=== PATIENT | male | born 1995 | race Caucasian/White ===

== ENCOUNTER 2020-07-18 21:28 | Emergency (ER) | payer SELFPAY ==
[2020-07-18 21:37] VITALS: BP 117/69; PULSE 64; RESP 19; TEMP 36.6; O2SAT 98; BMI 22.1
[2020-07-18 21:55] VITALS: BP 131/80; PULSE 60; RESP 18; O2SAT 100
--- NOTE | 2020-07-18 22:03 | XRR_ITS ---
PROCEDURE INFORMATION: Exam: XR Left Foot Complete Exam date and time: 07/18/2020 10:21 PM Age: 24 years old Clinical indication: Injury or trauma; Blunt trauma; Patient HX: Fall, left foot/ankle pain; Additional info: Fall/injury TECHNIQUE: Imaging protocol: XR Left foot. Views: 3 or more views. COMPARISON: No relevant prior studies available. FINDINGS: Bones/joints: There is a tiny calcification lateral to the cuboid compatible with either a small os peroneum or tiny avulsion fracture. No dislocation. No additional acute fracture. Probable chronic/old avulsion fracture of the dorsum of the talus is noted. Soft tissues: There is soft tissue edema along the lateral midfoot. No foreign body. XR/XR foot LT min 3V* [id number] IMPRESSION: There is a tiny calcification lateral to the cuboid compatible with either a small os peroneum or tiny avulsion fracture. There is adjacent soft tissue edema. No additional acute bony abnormality.
--- NOTE | 2020-07-18 22:03 | XRR_ITS ---
PROCEDURE INFORMATION: Exam: XR Left Ankle Exam date and time: 07/18/2020 10:19 PM Age: 24 years old Clinical indication: Injury or trauma; Blunt trauma; Right; Patient HX: Fall, left ankle/foot pain; Additional info: Fall/injury TECHNIQUE: Imaging protocol: XR Left ankle. Views: 3 or more views. COMPARISON: No relevant prior studies available. FINDINGS: Bones/joints: There is a small avulsion fracture of the dorsum of the talus without significant edema. This may be old. No dislocation. No additional acute fracture is identified. The tiny calcification adjacent to the cuboid on the foot exam is not visualized on this exam. Soft tissues: There is soft tissue edema along the lateral hindfoot. XR/XR ankle LT min 3V* [id number] IMPRESSION: There is a small avulsion fracture of the dorsum of the talus without significant edema. This may be old.
[2020-07-18 22:23] VITALS: BP 131/80; PULSE 87; RESP 14; O2SAT 99
--- NOTE | 2020-07-18 22:51 | W.ED.EXTPRO ---
HPI - Extremity Problem General: Chief complaint: Extremity Injury, Lower Stated complaint: left foot injury Time Seen by Provider: 07/18/20 21:47 Source: patient Limitations: no limitations History of Present Illness: HPI Narrative: Just prior to arrival the patient states he was dancing around with friends when he rolled his left ankle. He has pain in the foot and ankle. He denies any other injuries or complaints. Patient says he can walk on his foot but it does cause a significant amount of pain when he does so. Review of Systems General: Reports: 10 or more systems reviewed and unremarkable except in HPI and below PFSH ED PFSH: Social History Smoking and tobacco status: current every day smoker cigarettes and smokeless tobacco Physical Exam Extremity: NARRATIVE EXTREMITY EXAM: Left lateral ankle swelling and foot swelling. Neurovascular intact distal. No pain proximal to the ankle on palpation. Course Vital Signs: Vital signs: Vital Signs Temperature 97.8 F 07/18/20 21:37 Pulse Rate 84 07/19/20 00:50 Respiratory Rate 14 07/19/20 00:50 Blood Pressure 128/74 07/19/20 00:50 Pulse Oximetry 99 07/19/20 00:50 MDM - Extremity (Nontraumatic) MDM Narrative: Medical decision making narrative: Patient appears to have a small avulsion fracture of the foot. I will place him in a splint, crutches and have him follow-up with orthopedics. Imaging Data^: Left Foot and Ankle - : Attestation: I personally reviewed and interpreted this imaging study as follows: My impression: Small avulsion fracture on the left foot Discharge Plan Discharge Patient Disposition: Home Clinical Impression: Foot fracture, left Qualifiers: Encounter type: initial encounter Fracture type: closed Qualified Code(s): S92.902A - Unspecified fracture of left foot, initial encounter for closed fracture Condition: Stable Prescriptions: No Action ondansetron 4 mg tablet,disintegrating 4 mg PO Q8H PRN (Reason: nausea and vomiting) Qty: 20 RF: 0 Discharge Orders: Discharge Order (Routine); Ordered 07/18/20 Ordered By: Rae Valencia Referrals: Tucker Hayward DPM [Physician] - 1-3 days Walt Perrin MD [Family Provider] - Patient Instructions: Foot Fracture in Adults (ED) Activity Restrictions/Additional Instructions: Please return to the ER immediately for any of the signs or symptoms listed on your discharge instruction sheets, worsening/changing of your symptoms, you are not getting better as quickly as expected, or for ANY other cause or concerns. Do not bear weight on your left foot until instructed further by Dr. Hayward. Use your crutches and splint at all times. Return to the ER for any worsening of your symptoms or cause for concern. Discharge Date/Time: 07/19/20 00:52 Coding Level of Care Code ED Building Supplies Salesperson Retail for Bambi Hernandez
[2020-07-18] MEDS: HYDROcodone-acetaminophen 5-325 mg Tablet 1 TAB PO (23:46)
[2020-07-19 00:50] VITALS: BP 128/74; PULSE 84; RESP 14; O2SAT 99
--- NOTE | 2020-07-21 09:26 | DCPLANNER ---
Dae pickard had message to schedule a follow up appointment for patient with ortho. cinema or theatre manager called the ortho clinic, spoke with Rachna, gave clinic patients information. cinema or theatre manager was told that patients information would be printed and reviewed. Clinic will call patient with appointment information.
--- NOTE | 2020-07-22 09:47 | DCPLANNER ---
Patient has a follow up appointment scheduled for July at 8:[address] Hayward. Clinic will call patient with appointment information.
--- NOTE | 2020-08-01 18:11 | DCPLANNER ---
Patient had a follow up appointment scheduled for 07.24.20 with ortho - patient did attend appointment.
== END 2020-07-19 00:52 | disposition home or self-care (01) ==
PROVIDERS: Emergency Provider Emergency Medicine; Family Provider Family Medicine
DX: S92.812A Other fracture of left foot, initial encounter for closed fracture (principal); X50.1XXA Overexertion from prolonged static or awkward postures, initial encounter; F17.220 Nicotine dependence, chewing tobacco, uncomplicated
CPT/HCPCS: 12345; 29515; 73610; 73630; 99281; 99283

== ENCOUNTER 2020-07-24 09:47 | Outpatient (CLI) | payer SELFPAY | END 2020-07-24 09:48 | disposition home or self-care (01) | LOC: SPT 09:49 | PROVIDERS: Family Provider Family Medicine; Visit Provider Podiatrist Foot & Ankle Surgery | DX: Z47.89 Encounter for other orthopedic aftercare (principal); S92.109D Unspecified fracture of unspecified talus, subsequent encounter for fracture with routine healing; S92.21 Fracture of cuboid bone; S93.409D Sprain of unspecified ligament of unspecified ankle, subsequent encounter; X58.XXXD Exposure to other specified factors, subsequent encounter | CPT/HCPCS: 97760; L4361 ==

== ENCOUNTER 2020-08-07 13:55 | Outpatient (CLI) | payer SELFPAY | END 2020-08-07 13:56 | disposition home or self-care (01) | LOC: SPT 13:55 | PROVIDERS: Family Provider Family Medicine; Visit Provider Podiatrist Foot & Ankle Surgery | DX: Z46.89 Encounter for fitting and adjustment of other specified devices (principal); S92.212D Displaced fracture of cuboid bone of left foot, subsequent encounter for fracture with routine healing; X58.XXXD Exposure to other specified factors, subsequent encounter | CPT/HCPCS: 97760; L1902 ==

== ENCOUNTER 2022-08-24 10:02 | Emergency (ER) | payer SELFPAY ==
[2022-08-24 10:07] VITALS: BP 135/78; PULSE 92; RESP 16; TEMP 36.5; O2SAT 100; BMI 23.6
[2022-08-24 10:24] VITALS: PULSE 91; O2SAT 98
--- NOTE | 2022-08-24 10:30 | PC.NURSE ---
ANIMAL CONTROL CALLED TO BE NOTIFIED OF DOG BITE. RECIPIENT OF CALL WAS UNABLE TO ANSWER. BRIEF MESSAGE LEFT ON VOICEMAIL WITH INSTRUCTION TO CALL BACK [phone]
--- NOTE | 2022-08-24 10:34 | ED_ITS ---
HPI - Animal Bite General: Chief Complaint: Animal Bite Stated Complaint: infected dog bite Time Seen by Provider: 08/24/22 10:13 Source: patient History of Present Illness: 27-year-old male was bit by a neighbor's dog 2 days ago. Reddened inflamed his bed on the left forearm no active drainage it has become red and inflamed mild swelling. The dog's rabies vaccination status is unknown MD complaint: animal bite Onset (ago): minute(s) Animal: dog Description of animal: household pet Mechanism: bite Location - Extremities: Left: forearm Pain description: dull Associated symptoms: Reports erythema; Deny bleeding, chills, cough, diaphoresis, fever(s), headache(s), numbness, rash, short of breath, syncope, weakness or wound drainage Related Data: Patient tetanus UTD: Yes Review of Systems Const: Denies: fever(s), chills or diaphoresis ENMT: Denies: throat pain, ear or mastoid pain, nasal discharge or nasal congestion Card: Denies: syncope Resp: Denies: dyspnea, productive cough or non-productive cough GI: Denies: abdominal pain, nausea, vomiting, hematemesis, coffee ground emesis, diarrhea, constipation, bloating, hematochezia or melena : Denies: flank pain, difficulty urinating, dysuria, urinary frequency or urinary urgency Skin/Breast: Denies: rash or pruritus Neuro: Denies: headache(s) PFSH ED PFSH: Social History Smoking and tobacco status: current every day smoker cigarettes and smokeless tobacco Physical Exam Const: COMMON NORMALS: no acute distress GENERAL APPEARANCE: cooperative and comfortable ORIENTATION/CONSCIOUSNESS: Yes awake, Yes oriented to person, Yes oriented to place and Yes oriented to time Eye: COMMON NORMALS: Equal, round and reactive pupils present, EOMs intact bilaterally, conjunctivae normal and no scleral icterus CONJUNCTIVA: Yes conjunctivae normal PUPIL: Yes Equal, round and reactive pupils present Lymph: LYMPHATIC: no lymphadenopathy noted and no lymphedema noted Resp: COMMON NORMALS: normal respiratory effort, No retractions, No use of accessory muscles and clear to auscultation bilaterally AUSCULTATION: clear to auscultation bilaterally Cardio: COMMON NORMALS: regular rate, regular rhythm and No murmurs present (Cardio) RATE: regular rate RHYTHM: regular rhythm Extremity: COMMON NORMALS: capillary refill normal, no clubbing, cyanosis or edema, no calf tenderness and no pedal edema OTHER: L arm dry eschar with no drainage. Mild erythema and swelling. no plapable abscess. Neuro: SENSORIUM/ORIENTATION: Yes oriented to person, Yes oriented to place and Yes oriented to time Skin: GENERAL SKIN EXAM: erythema Course Vital Signs: Vital signs: Vital Signs Temperature 97.7 F 08/24/22 10:07 Pulse Rate 91 08/24/22 10:24 Respiratory Rate 16 08/24/22 10:07 Blood Pressure 135/78 08/24/22 10:07 Pulse Oximetry 98 08/24/22 10:24 Oxygen Delivery Me thod 08/24/22 10:24 MDM - Animal Bite Medical Decision Making Patient states he is up-to-date on his tetanus status. He had an injury a year or 2 ago was updated. They are unsure of the rabies vaccination status of the dog that bit him and his neighbors dog. We will start him on rabies prophylaxis and vaccination. For return for the remainder of the immunizations. Medical Records I reviewed the patient's medical records. Lab Data I reviewed the patient's lab results. Discharge Plan Discharge Patient Disposition: Home Clinical Impression: Dog bite, Probable rabies Condition: Stable Prescriptions: New amoxicillin-pot clavulanate 875-125 mg tablet 1 tab PO BID Qty: 14 0RF Discontinued amoxicillin 500 mg capsule 500 mg PO QID Qty: 40 0RF No Action promethazine 25 mg tablet 25 mg PO Q6H PRN (Reason: nausea and vomiting) Qty: 14 0RF Discharge Orders: Discharge ED (Routine); Ordered 08/24/22 Ordered By: Javier Wilkinson Discharge Diet: Usual diet Discharge Activity: Resume usual activity Activity Restrictions/Additional Instructions: Turn for the completion of your rabies series as indicated on the discharge information Coding Level of Care Code ED Accounts Administrator for Bambi Hernandez
[2022-08-24] MEDS: rabies vaccine 2.5 unit SDV IM (10:43)
[2022-08-24 11:07] VITALS: PULSE 91; O2SAT 98
--- NOTE | 2022-08-24 11:33 | PC.NURSE ---
ANIMAL CONTROL CALLED [facility] ED. INFORMATION OF INCIDENT GIVEN. ANIMAL CONTROL INFORMED THAT PT DID NOT WISH TO PRESS CHARGES UNLESS ANIMAL WAS SEEN AGAIN.
== END 2022-08-24 11:16 | disposition home or self-care (01) ==
PROVIDERS: Emergency Provider Family Medicine
DX: S51.852A Open bite of left forearm, initial encounter (principal); Z20.3 Contact with and (suspected) exposure to rabies; W54.0XXA Bitten by dog, initial encounter; Z29.14 Encounter for prophylactic rabies immune globulin; F17.210 Nicotine dependence, cigarettes, uncomplicated
CPT/HCPCS: 90375; 90471; 90675; 96372; 99284

== ENCOUNTER 2023-04-19 07:58 | Day surgery (SDC) | payer OTHER, SELFPAY ==
[2023-04-19] VITALS (14 sets, daily range): BP systolic 105–156; BP diastolic 68–87; PULSE 46–76; RESP 12–20; TEMP 36.1–36.5; O2SAT 92–99; BMI 21.5
--- NOTE | 2023-04-19 08:12 | ED_ITS ---
Documented by User: SPIKE Ragsdale 04/19/23 10:40 HPI - Extremity Injury (Upper) General: Chief Complaint: Extremity Injury, Upper Stated Complaint: index finger, right hand lac Time Seen by Provider: 04/19/23 07:59 Source: patient Mode of arrival: ambulatory Limitations: no limitations History of Present Illness: Patient is a 27-year-old male who presents to ED today with a complaint of a right index finger amputation injury that he sustained just prior to arrival while at work at a [employer]. He states he cut the finger on a sawblade. Last tetanus is unknown. MD complaint: injury to: right and finger Onset (ago): hour(s) Other Extremity Injury: Right: fingers Other injuries: none Handedness: right Place: work Severity: severe Severity scale (1-10): 10 Relieving factors: none Exacerbating factors: movement of extremity Context: laceration Associated symptoms: Reports no associated symptoms Treatments prior to arrival: bandage Review of Systems GI: Reports: nausea Musc: Reports: extremity pain (R index finger) Skin/Breast: Reports: other (distal finger tip amputation) [facility] ED PFSH: Social History Smoking and tobacco status: current every day smoker cigarettes and smokeless tobacco Physical Exam Const: COMMON NORMALS: average body habitus, patient oriented x3, no limitations, healthy appearing, alert and well nourished GENERAL APPEARANCE: cooperative and in distress (nauseous and in pain) ORIENTATION/CONSCIOUSNESS: Yes awake, Yes oriented to person, Yes oriented to place and Yes oriented to time Extremity: GENERAL: Yes normal exam except as noted RIGHT UPPER EXTREMITY: Yes hand & digits (see below) OTHER: patient has extensive injury to R index finger distal tip; he has lacerated vertically through tip down to his PIP joint; bleeding controlled at this time Neuro: COMMON NORMALS: patient oriented x3 SENSORIUM/ORIENTATION: Yes alert, Yes oriented to person, Yes oriented to place and Yes oriented to time Course Consultations: Consultation #1: Dr. Dominguez-will take to OR later this evening around 5pm; agrees with tetanus/IV ancef given here; recommends wash out Vital Signs: Vital signs: Vital Signs Temperature 97.7 F 04/19/23 08:28 Pulse Rate 70 04/19/23 10:30 Respiratory Rate 16 04/19/23 10:30 Blood Pressure 105/68 04/19/23 10:30 Pulse Oximetry 95 04/19/23 10:30 Oxygen Delivery Me thod Room Air 04/19/23 08:28 MDM - Extremity Injury (Upper) Medical Decision Making Discussed case x-ray reviewed. Agree with assessment and plan. Laila Stone is talk to Dr. Dominguez plan is 6 patient to surgery this afternoon for revision of the amputation site on the right index finger. Patient will await surgery in GI outpatient lab. Pain/nausea prn meds ordered. He is NPO. Maintaince fluids ordered. Lab Data Radiology Impressions Finger X-Ray 04/19/23 08:15 IMPRESSION: Complex open crush injury of the distal 2nd phalanx. Discharge Plan Discharge Patient Disposition: Admitted As Inpatient Clinical Impression: Finger amputation, traumatic Qualifiers: Encounter type: initial encounter Qualified Code(s): S68.119A - Complete traumatic metacarpophalangeal amputation of unspecified finger, initial encounter Condition: Stable Coding Level of Care Code ED Clean Room Assembler for Chg Fwd Documented by User: Javier Wilkinson DO 04/19/23 12:37 HPI - Extremity Injury (Upper) General: Chief Complaint: Extremity Injury, Upper Stated Complaint: index finger, right hand lac Time Seen by Provider: 04/19/23 07:59 PFSH ED PFSH: Social History Smoking and tobacco status: current every day smoker cigarettes and smokeless tobacco Course Vital Signs: Vital signs: Vital Signs Temperature 97.7 F 04/19/23 08:28 Pulse Rate 70 04/19/23 10:30 Respiratory Rate 16 04/19/23 10:30 Blood Pressure 105/68 04/19/23 10:30 Pulse Oximetry 95 04/19/23 10:30 Oxygen Delivery Me thod Room Air 04/19/23 08:28 MDM - Extremity Injury (Upper) Medical Decision Making Discussed case x-ray reviewed. Agree with assessment and plan. Laila Stone is talk to Dr. Dominguez plan is 6 patient to surgery this afternoon for revision of the amputation site on the right index finger. Patient will await surgery in GI outpatient lab. Pain/nausea prn meds ordered. He is NPO. Maintaince fluids ordered. Medical Records I reviewed the patient's medical records. Lab Data I reviewed the patient's lab results. Radiology Impressions Finger X-Ray 04/19/23 08:15 IMPRESSION: Complex open crush injury of the distal 2nd phalanx. Discharge Plan Discharge Patient Disposition: Admitted As Inpatient Clinical Impression: Finger amputation, traumatic Qualifiers: Encounter type: initial encounter Qualified Code(s): S68.119A - Complete traumatic metacarpophalangeal amputation of unspecified finger, initial encounter Condition: Stable Coding Level of Care Code ED Clean Room Assembler for Bambi Hernandez
--- NOTE | 2023-04-19 08:15 | XRR_ITS ---
PROCEDURE INFORMATION: Exam: XR Right Finger(s) Exam date and time: 04/19/2023 8:21 AM Age: 27 years old Clinical indication: Injury or trauma; Other: Laceration; Right; Index finger; Additional info: Trauma/amputation; Index TECHNIQUE: Imaging protocol: Radiologic exam of the right fingers. Views: Minimum 2 views. COMPARISON: No relevant prior studies available. FINDINGS: Bones/joints: Complex open crush injury of the distal 2nd phalanx. Soft tissues: Normal. XR/XR finger RT min 2V [id number] IMPRESSION: Complex open crush injury of the distal 2nd phalanx.
[2023-04-19] MEDS: morphine 4 mg/mL SDV 1 mL IVP ×2 (08:21→09:15)
[2023-04-19] MEDS: ondansetron 2 mg/ML SDV 2 mL 4 MG IVP (08:21)
[2023-04-19] MEDS: ceFAZolin 1,000 MG in sodium chloride 0.9% (plus) 50 ML 100 MG IV (08:26)
[2023-04-19] MEDS: tetanus-dipt-pertussis 0.5 mL SDV IM (08:51)
--- NOTE | 2023-04-19 09:21 | PC.PHAR ---
pt states he takes no rx or otc medications
[2023-04-19] MEDS: lidocaine 2% INJ 20 mL INJECTION ×2 (10:02→17:49)
[2023-04-19] MEDS: sodium chloride 0.9% 1,000 ML 125 ML IV (10:30)
--- NOTE | 2023-04-19 11:50 | ANES.PREANE2 ---
Pre-Anesthetic Assessment Height/Weight: Height 1.78 m Weight 68.039 kg Temp Pulse Resp BP Pulse Ox O2 Del Method 97.7 F 70 16 105/68 95 Room Air 04/19/23 08:28 04/19/23 10:30 04/19/23 10:30 04/19/23 10:30 04/19/23 10:30 04/19/23 08:28 Familial anesthetic complications: none Was Beta Kash taken within 24 hours: N/A Was Clonidine taken within 24 hours: N/A Last intake: > 8 hrs Social No alcohol and No tobacco Exam alert, oriented x 3, clear to auscultation bilaterally and regular rate & rhythm Airway Mallampati: Class I Dentition: chipped and other (poor dentitoin) Anesthetic Plan ASA status: 1 Anesthesia: MAC Risk of > 500 ml blood loss (7ml/kg in children): No Medications/Allergies Home Medications Medication Instructions Recorded Confirmed Last Taken Type No Known Home Medications 04/19/23 04/19/23 Unknown History Allergies Allergy/AdvReac Type Severity Reaction Status Date / Time No Known Allergies Allergy Verified 04/19/23 09:21 [facility] Anesthesia Social History Smoking and tobacco status: current every day smoker cigarettes and smokeless tobacco Data Anesthesia Cardiac Studies: No Data to Display
--- NOTE | 2023-04-19 12:46 | P.HP_ITS ---
Providers/Chief Complaint Admitting Physician: Ever Dominguez DO/orthopedic surgery Chief Complaint: index finger, right hand lac History of Present Illness David Vines is a 27 year old male was working at the [facility] today when he subsequently sustained injury to his right index finger he had a traumatic near partial amputation at the right index finger at the level of the DIP joint. Held on by soft tissue bridge volarly. He was seen evaluated in the emergency department. Patient's skin flap was viable. He had significant comminution of the entire distal phalanx into the DIP joint. Hemostasis was maintained. He received appropriate antibiotics in the emergency department as well as tetanus. Orthopedics was then consulted for recommendation. Given the acuity and nature and that this happened at the [employer] [facility] recommended surgical intervention today urgently for irrigation and debridement. We talked about this in detail and ultimately at this point in time given the comminution of the fracture fragments involving the DIP joint with really no ability to reconstruct and likely a poor functional outcome patient elects to proceed with a right index finger revision amputation. Patient understands agrees with current plan. All questions answered. We will proceed with OR today. Review of Systems General: Reports: 10 or more systems reviewed and unremarkable except in HPI and below Medications/Allergies Home Medications Medication Instructions Recorded Confirmed Last Taken Type cephalexin 500 mg capsule 500 mg PO Q8H 10 days #30 caps 04/19/23 Unknown Rx ibuprofen 800 mg tablet 800 mg PO Q6H PRN pain 14 days #56 04/19/23 Unknown Rx tabs tramadol 50 mg tablet 50 mg PO Q6H PRN pain 7 days #28 04/19/23 Unknown Rx tabs Allergies Allergy/AdvReac Type Severity Reaction Status Date / Time No Known Allergies Allergy Verified 04/19/23 15:03 PFSH Acute PFSH: Social History Smoking and tobacco status: current every day smoker cigarettes and smokeless tobacco Vitals/I&O/Wt Last Vital Signs Temp 97.7 F 04/19/23 08:28 Pulse 70 04/19/23 10:30 Resp 16 04/19/23 10:30 BP 105/68 04/19/23 10:30 Pulse Ox 95 04/19/23 10:30 O2 Del Method Room Air 04/19/23 08:28 07/08/0104/19/23 04/19/23 22:59 06:59 14:59 Intake Total 50 / 50 Balance 50 / 50 Weight last 48 hrs Weight 150 lb Physical Exam Narrative: Orthopedic specific examination: Examination of the right hand: Examination of the right hand demonstrates traumatic near amputation of the distal finger of the right index finger at the level of the DIP joint there is a flap of volar skin distally that is maintained and intact. Multiple bony frac ture fragments noted throughout visibility directly of the DIP joint noted. Patient is able to flex at the PIP joints but not at the DIP joint. Volar skin flap has brisk capillary refill less than 2 seconds. No other lacerations or injuries noted throughout the rest the digits of the hand is able to make a fist with his other digits. Significant pain and tenderness to palpation of the fingertip of the right index finger. No sensation noted distally in the skin flap. Data Xray Ortho: My impression: X-rays multiple views right hand reviewed in person interpreted myself demonstrating a near amputation right index finger distal phalanx with severely comminuted distal phalanx fracture with considerable comminution intra-articular involvement in the DIP joint. Soft tissue defect noted. A&P Assessment and plan (1) Partial traumatic amputation of finger through phalanx: Plan Antibiotics in emergency department Tetanus up-to-date Patient localized and underwent local irrigation debridement per emergency department team placed in wet-to-dry Elevation Pain control Maintain n.p.o. status Plan to proceed with right index finger irrigation debridement and right index finger revision amputation today emergently Patient is a pleasant 27-year-old gentleman works at the [employer] sustained a near amputation of the right index finger at the level of the DIP joint. He has a considerable amount of comminution of the distal phalanx that does not appear to be reconstructable at this point time would recommend a right index finger revision amputation patient would like to proceed with this. Patient understands and agrees with current plan. All questions answered. He understands risk benefits complication alternatives with surgery. He understands the risk of surgery include not limited to wound complications and infection as well as persistent pain and decreased function hand. Understands risk of surgery elects to proceed with surgery of the right index finger revision amputation. All questions answered. Attestations Medical Necessity Statement*: Traumatic amputation right index finger, admission for emergent surgery Coding Level of Care Code Acute Code for Chg Fwd Diagnoses Partial traumatic amputation of finger through phalanx S68.629A Time Spent (min) 50
[2023-04-19] MEDS: sodium chloride 0.9% 1,000 ML 30 ML IV (13:20)
[2023-04-19] MEDS: fentaNYL 50 mcg/mL INJ 2mL IVP (13:20)
[2023-04-19] MEDS: HYDROmorphone 1 mg/mL INJ 1 mL 0.5 MG IVP (13:35)
--- NOTE | 2023-04-19 14:38 | PC.NURSE ---
1043-Pt. received from ED via gurney to pre op room 12 and care taken over. pt stated no pain in his lacerated finger due to medicine injected into it in ED. VS taken, call light on bed rail and bed rail in high position. family with pt.
--- NOTE | 2023-04-19 14:42 | PC.NURSE ---
1320-Pt. stated the numbness had worn off his finger and requested pain medication. I received orders from Dr Dominguez to apply wet to dry dressing to laceration. I gave Fentenayl 50mcg IV to pt then proceeded to attempt dressing wound. Pt c/o pain of 10/10 and crying. I received a telephone order for Dilaudid 0.5mg iv from anshul Mallory. I gave the dilaudid and proceeded with dressing application. Pt. stated pain relief after wound dressed. Pt. placed on VS monitor before medications given.
--- NOTE | 2023-04-19 17:29 | W.PM.OPSUD ---
Surgery/Procedure H&P Update DATE OF PROCEDURE: April 19, 2023 DATE H&P PERFORMED: 04/19/23 CHANGES TO PREVIOUS DOCUMENTATION: None. No changes from HPI note from earlier today. Had shared decision-making with patient about treatment options as far as nonoperative and operative intervention given the open inherent nature and instability and significant comminution of the entire distal phalanx involving the DIP joint we talked about performing a right index finger revision amputation versus a salvage procedure. At this point time would like to proceed with a revision amputation for early return to work. Patient understands and agrees with current plan. All questions answered. We will proceed with a right index finger revision amputation today. Patient received appropriate antibiotics in the emergency department as well as tetanus. Patient understands agrees current plan. Questions answered. PREOP DIAGNOSIS: Right index finger traumatic partial amputation PRIMARY INDICATION FOR PROCEDURE: Right index finger traumatic partial amputation PLANNED PROCEDURE: Operation Date: 04/19/23 17:10 Proposed Procedures p Amputation Finger- revision(Right) - Ever Dominguez DO
[2023-04-19] MEDS: ceFAZolin 2,000 MG in sodium chloride 0.9% (plus) 50 ML 100 MG IV (17:50)
--- NOTE | 2023-04-19 18:57 | PM.OP ---
Operative Report Date of procedure: April 19, 2023 Pre-op diagnosis: Preop Diagnosis Right index finger traumatic partial amputation Post-op diagnosis: Same Procedure done: Right index finger revision amputation Right index finger rotational skin flap closure Surgeon: Ever Dominguez DO Anesthesia: MAC (With local) Estimated blood loss: 5 mL Finger turnicot used 36 minutes IV fluids: 300 mL Complications: None Findings: See operative report narrative Condition: stable Disposition: same day Brief History: Patient sustained a traumatic near partial amputation right index finger at the level of DIP joint from a sawmill injury at work. Given the significant comminution noted articular involvement we talked about his treatment options emergency department. Emergency department he received appropriate antibiotics as well as tetanus is up-to-date he was underwent preliminary irrigation and debridement and wet-to-dry dressing. At this point in time we talked about I&D and possible attempting to pin this finger versus revision amputation through shared decision-making patient elects proceed with a right index finger revision amputation. He understands the ins and outs of the procedure risk benefits complication alternatives surgery elects proceed with surgical intervention. All questions answered. Given the inherent nature this was taken back to the OR urgently today Procedure: Patient seen evaluate in the preoperative holding area. Consent was reviewed and signed with patient. Correct digit was then marked. Patient then was seen evaluated by anesthesia once cleared for surgery patient was taken back to the operative suite. Patient was then placed in supine position all bony prominences well-padded patient was appropriate secured to bed armboard was applied to the right upper extremity. Plan used a sterile turnicot for the finger to help with hemostasis. Right upper extremity was prepped and draped in standard orthopedic fashion. This point time patient received appropriate preoperative antibiotics as well as additional antibiotics patient proceed to the emergency department. Final timeout performed. I utilized a finger turnicot to exsanguinate the right index finger. At this point in time I evaluated the near amputation patient had a volar skin flap that would be amenable for a rotational flap closure for the revision amputation. At this point in time he used sharp scalpel excision as well as rongeur to excise all of the distal phalanx bone fragments. These were removed and confirmed with mini C arm. This point in time I then under traction performed resection of the bony fragment attached to the FDP tendon allowed this to retract proximally. Next identified the neurovascular bundles maintained appropriate hemostasis as well as performed traction neurectomies of the digital nerves to help prevent from neuroma formation. At this point in time I then thoroughly debrided the skin and soft tissue as well as bone to clean margins. This is debrided with sharp scalpel excision as well as rongeur. Once I had appropriate clean wound bed I then thoroughly irrigated this with over a liter of normal saline. Once this was performed I identified the DIP joint which the middle phalanx still had some cartilage intact there was a small area of removed articular cartilage. I then utilized a rongeur to remove the articular cartilage as well as to remove the condyles for appropriate contouring of the revision amputation. Once this was performed I then took an x-ray to confirm appropriate contouring of the middle phalanx. FDS tendons insertions were intact as this was proximal to my revision amputation site. I then finally irrigated the wound bed once more and the wound bed was found to be clean and stable. Next I plan for closure. Given this volar flap and the revision amputation nature I had a large area of radial skin that needed appropriate coverage I then in standard fashion performing appropriate extensions of the flap as well as of the laceration performed a rotational flap to contour the volar skin flap to appropriate skin coverage for complete revision amputation. Skin rotational flap coverage had full-thickness subcutaneous tissue and this was rotated and stitched in appropriate position this was sutured with 4-0 nylon suture in standard interrupted fashion. At this point in time finger turnicot was then removed hemostasis was satisfactory and the rotational skin flap had appropriate pink perfusion. I then dressed the incision with Xeroform 4 x 4's Curlex Chad wrap and then placed patient in a volar short arm splint. Patient was then awakened from anesthesia and taken to PACU in stable condition. Disposition: Patient taken to PACU in stable condition recovering well pain controlled. Will receive appropriate discharge directions pain medication and postoperative antibiotics. Patient placed in a bulky soft dressing with a volar splint. Patient will follow-up in the orthopedic office in 2 weeks. Patient understands and agrees with current plan. All questions answered.
--- NOTE | 2023-04-19 18:57 | PM.PACU ---
PACU note Narrative: Patient seen and evaluated in PACU is recovering well pain controlled. Local anesthetic still on in place from digital block. Patient has bulky dressing on in place which limits full examination. Dressings clean dry and intact. Prior to closure patient had brisk capillary refill of the revision flap. Exam: awake Disposition: discharged
--- NOTE | 2023-04-19 18:57 | PM.OP2 ---
Brief Operative Note Date of procedure: 04/19/23 Pre-op diagnosis: Right index finger traumatic partial amputation at level of DIP joint Post-op diagnosis: same Procedure Done: Right index finger revision amputation Right index finger rotational skin flap closure Surgeon: Ever Dominguez Estimated blood loss (mL): 5 Complications: None Post-op Plan: Patient taken to PACU in stable condition recovering well. Patient receive appropriate discharge instructions pain medication postoperative antibiotics. Given patient's young age received appropriate antibiotics IV during surgery would recommend he is stable for discharge from PACU. Patient will follow-up in the orthopedic office in 2 weeks. Understands if he has any questions or concerns he can contact the office for sooner visit. All questions answered. Condition: stable Disposition: same day Coding Level of Care Code Acute Code for Bambi Hernandez
--- NOTE | 2023-04-19 19:41 | PC.NURSE ---
Per Kristina, sent patient home with 4, 5 mg oxycodone tablets. Patient instructed he may take one tablet every 4 hours as needed for pain
--- NOTE | 2023-04-19 19:50 | ANE.PACU2 ---
Inpatient post-anesthesia follow up: Airway intact: Yes Vital signs: Temperature 97.7 F Pulse Rate 64 Respiratory Rate 18 Blood Pressure 137/85 Pulse Oximetry 97 Oxygen Delivery Me thod Room Air Oxygen Flow Rate 0 Fraction of Inspir ed Oxygen Hydration adequate: Yes Nausea and vomiting: Yes Pain level: 1 Mental status: Baseline
== END 2023-04-19 19:50 | disposition home or self-care (01) ==
LOC: ER 09:12 → OPS 12:09
PROVIDERS: Emergency Provider Physician Assistant; Visit Provider Student in an Organized Health Care Education/Training Program
PROC: (CPT 26951; principal; 2023-04-19 16:50)
DX: S68.120A Partial traumatic metacarpophalangeal amputation of right index finger, initial encounter; W27.0XXA Contact with workbench tool, initial encounter; Y92.69 Other specified industrial and construction area as the place of occurrence of the external cause; Y99.0 Civilian activity done for income or pay; F17.210 Nicotine dependence, cigarettes, uncomplicated; Z23 Encounter for immunization
CPT/HCPCS: 26952; 73140; 76000; 90471; 90715; J0690; J1170; J2270; J2405; J2704; J3010; J3490; J7030